=== PATIENT | male | born 1945 | race Caucasian/White ===

== ENCOUNTER 2016-10-26 14:25 | Emergency (ER) | payer MEDICARE ==
[~2016-10-26] VITALS: Ht 177.8 cm; Wt 91.0 kg
[~2016-10-26 14:25] MED LIST: ALFU10TA PO; HYDR-3240 PO; INDO50CA PO; MILK THISTLE PO; MULT-208 PO; No meds per pt.; OXYC-302 PO; RED600TA PO; SELE200T10 PO
[2016-10-26 14:35] VITALS: BP 147/93
== END 2016-10-26 15:56 | disposition home or self-care (01) ==
LOC: ED 15:50
DX: H66.93 Otitis media, unspecified, bilateral (principal); Z87.891 Personal history of nicotine dependence
CPT/HCPCS: 99283

== ENCOUNTER 2017-06-13 07:22 | Inpatient (IN) | payer MEDICARE ==
[~2017-06-13] VITALS: Ht 177.8 cm; Wt 97.6 kg
[2017-06-13] MEDS ORDERED: OXYC-302 PO (08:11)
[2017-06-13] MEDS ORDERED: TURM1TAB PO (08:11)
[2017-06-13] MEDS ORDERED: SODIUM CHLORIDE 0.9% 1,000 ML IV ONE (08:21)
[2017-06-13] MEDS ORDERED: SODIUM CHLORIDE FLUSH 10ML SYR IVF ONE (08:30)
[2017-06-13 09:22] LABS: BASOPHILS # (AUTO) 0.04 x10^3/uL (0-0.1); BASOPHILS % (AUTO) 1 % (0-1); EOSINOPHILS # (AUTO) 0.11 x10^3/uL (0-0.4); EOSINOPHILS % (AUTO) 2 % (1-7); LYMPHOCYTES # (AUTO) 1.82 x10^3/uL (1-3.4); LYMPHOCYTES % (AUTO) 25 % (22-44); MD NO; MEAN CORPUSCULAR HEMOGLOBIN 31.3 pg (27.5-34.5); MEAN CORPUSCULAR HGB CONC 34.6 g/dL (33.2-36.2); MEAN CORPUSCULAR VOLUME 90.6 fL (81-97); MEAN PLATELET VOLUME 7.8 fL (7.4-10.4); MONOCYTES % (AUTO) 8 % (2-9); NEUTROPHILS # (AUTO) 4.64 x10^3/uL (1.8-6.8); NEUTROPHILS % (AUTO) 64 % (42-75); PLATELET COUNT 237 x10^3/uL (130-400); RED BLOOD COUNT 5.41 x10^6/uL (4.38-5.82); RED CELL DISTRIBUTION WIDTH 13.6 % (9.4-14.8)
[2017-06-13 09:32] LABS: ALANINE AMINOTRANSFERASE 22 U/L (12-78); ALBUMIN 3.6 g/dL (3.4-5.0); ANION GAP 7 mmol/L (5-15); CALCIUM 9.1 mg/dL (8.5-10.1); CHLORIDE 109 mmol/L (98-107); CREATININE 1.07 mg/dL (0.7-1.3)
[2017-06-13 09:35] LABS: ALKALINE PHOSPHATASE 46 U/L (45-117); BILIRUBIN,TOTAL 0.5 mg/dL (0.2-1.0); TOTAL PROTEIN 8.2 g/dL (6.4-8.2); TROPONIN I < 0.015 ng/mL (0.000-0.045)
[2017-06-13] MEDS ORDERED: ASPIRIN 325 MG TABLET ONE (10:16)
[2017-06-13] MEDS ORDERED: ASPIRIN 325 MG TABLET PO ONE (10:30)
[2017-06-13] MEDS ORDERED: LABETALOL 5MG/ML, 20ML IVPush PRN (12:30)
[2017-06-13] MEDS ORDERED: ASPIRIN 325 MG TABLET EC PO ONE (12:30)
[2017-06-13] MEDS ORDERED: POLYETHYLENE GLYCOL 17 GM PACKET PO PRN (12:30)
[2017-06-13] MEDS ORDERED: ONDANSETRON 2MG/ML, 2ML IVPush PRN (12:30)
[2017-06-13] MEDS ORDERED: HYDROcodone/APAP 5/325 TABLET PO PRN (12:30)
[2017-06-13] MEDS ORDERED: ONDANSETRON ODT 4 MG PO PRN (12:30)
[2017-06-13] MEDS ORDERED: GUAIFENESIN/DM 200-20MG, 10ML UDC PO PRN (12:30)
[2017-06-13 13:01] LABS: INTERNATIONAL NORMALIZED RATIO 1.07 (0.93-1.1); PROTHROMBIN TIME 11.1 Seconds (9.6-11.5)
[2017-06-13 13:19] LABS: CHOL/HDL RATIO 6.3; LDL/HDL RATIO 3.7 (0.5-3.0)
[2017-06-13 13:24] LABS: HEMOGLOBIN A1C 5.3 % (4.2-6.3)
[2017-06-13 14:00] VITALS: BP 151/89
[2017-06-13] MEDS: ENOXAPARIN 40 MG/0.4 ML SQ SCH (15:07)
[2017-06-13] MEDS: OXYcodone/APAP 5/325MG TABLET PO PRN ×2 (15:07→19:18)
[2017-06-13] MEDS: SODIUM CHLORIDE 0.9% 1,000 ML IV SCH (15:08)
[2017-06-13] MEDS ORDERED: INSULIN SINGLE DOSE, ER SQ-INSULIN ONE (16:07)
[2017-06-13 19:26] VITALS: BP 147/78
[2017-06-14 01:10] VITALS: BP 131/83
[2017-06-14] MEDS: SODIUM CHLORIDE 0.9% 1,000 ML IV SCH ×3 (01:10→21:04)
[2017-06-14] MEDS: OXYcodone/APAP 5/325MG TABLET PO PRN ×5 (04:02→22:42)
[2017-06-14 05:53] LABS: ALANINE AMINOTRANSFERASE 18 U/L (12-78); ALBUMIN 2.7 g/dL (3.4-5.0); ANION GAP 7 mmol/L (5-15); CALCIUM 8.1 mg/dL (8.5-10.1); CHLORIDE 113 mmol/L (98-107); CREATININE 0.94 mg/dL (0.7-1.3)
[2017-06-14 05:55] LABS: ALKALINE PHOSPHATASE 38 U/L (45-117); BILIRUBIN,TOTAL 0.4 mg/dL (0.2-1.0); TOTAL PROTEIN 6.4 g/dL (6.4-8.2)
[2017-06-14] MEDS: ASPIRIN 81 MG TABLET EC PO SCH (05:55)
[2017-06-14 06:06] LABS: BASOPHILS # (AUTO) 0.06 x10^3/uL (0-0.1); BASOPHILS % (AUTO) 1 % (0-1); EOSINOPHILS # (AUTO) 0.14 x10^3/uL (0-0.4); EOSINOPHILS % (AUTO) 3 % (1-7); LYMPHOCYTES # (AUTO) 1.71 x10^3/uL (1-3.4); LYMPHOCYTES % (AUTO) 29 % (22-44); MD NO; MEAN CORPUSCULAR HGB CONC 34.1 g/dL (33.2-36.2); MEAN CORPUSCULAR VOLUME 90.8 fL (81-97); MEAN PLATELET VOLUME 8.3 fL (7.4-10.4); MONOCYTES # (AUTO) 0.62 x10^3/uL (0.2-0.8); MONOCYTES % (AUTO) 11 % (2-9); NEUTROPHILS # (AUTO) 3.34 x10^3/uL (1.8-6.8); NEUTROPHILS % (AUTO) 57 % (42-75); PLATELET COUNT 206 x10^3/uL (130-400); RED CELL DISTRIBUTION WIDTH 13.7 % (9.4-14.8)
[2017-06-14 08:30] VITALS: BP 147/77
[2017-06-14] MEDS: SENNA/DOCUSATE TABLET PO SCH ×2 (09:09→18:24)
[2017-06-14] MEDS: ENOXAPARIN 40 MG/0.4 ML SQ SCH (12:04)
[2017-06-14 15:14] VITALS: BP 132/76
[2017-06-14 18:51] VITALS: BP 131/74
[2017-06-14] MEDS: PRAVASTATIN 40 MG TABLET PO SCH (20:55)
[2017-06-14] MEDS ORDERED: PRAVASTATIN 20 MG TABLET PO SCH (21:00)
[2017-06-15 00:10] VITALS: BP 153/87
[2017-06-15] MEDS: OXYcodone/APAP 5/325MG TABLET PO PRN ×4 (04:51→18:22)
[2017-06-15] MEDS: ASPIRIN 81 MG TABLET EC PO SCH (04:54)
[2017-06-15 05:03] LABS: BASOPHILS # (AUTO) 0.07 x10^3/uL (0-0.1); BASOPHILS % (AUTO) 1 % (0-1); EOSINOPHILS # (AUTO) 0.18 x10^3/uL (0-0.4); EOSINOPHILS % (AUTO) 3 % (1-7); LYMPHOCYTES # (AUTO) 1.44 x10^3/uL (1-3.4); LYMPHOCYTES % (AUTO) 22 % (22-44); MD NO; MEAN CORPUSCULAR HGB CONC 34.1 g/dL (33.2-36.2); MEAN CORPUSCULAR VOLUME 90.7 fL (81-97); MONOCYTES % (AUTO) 9 % (2-9); NEUTROPHILS # (AUTO) 4.15 x10^3/uL (1.8-6.8); NEUTROPHILS % (AUTO) 65 % (42-75); PLATELET COUNT 204 x10^3/uL (130-400); RED BLOOD COUNT 4.65 x10^6/uL (4.38-5.82); RED CELL DISTRIBUTION WIDTH 13.6 % (9.4-14.8)
[2017-06-15 05:13] LABS: ALBUMIN 2.8 g/dL (3.4-5.0); ANION GAP 4 mmol/L (5-15); CALCIUM 7.9 mg/dL (8.5-10.1); CHLORIDE 115 mmol/L (98-107)
[2017-06-15 05:19] LABS: ALANINE AMINOTRANSFERASE 20 U/L (12-78); ALKALINE PHOSPHATASE 38 U/L (45-117); BILIRUBIN,TOTAL 0.5 mg/dL (0.2-1.0); CREATININE 0.93 mg/dL (0.7-1.3); TOTAL PROTEIN 6.3 g/dL (6.4-8.2)
[2017-06-15] MEDS: SODIUM CHLORIDE 0.9% 1,000 ML IV SCH ×2 (07:04→17:22)
[2017-06-15 08:45] VITALS: BP 145/78
[2017-06-15] MEDS: SENNA/DOCUSATE TABLET PO SCH (08:49)
[2017-06-15] MEDS: ENOXAPARIN 40 MG/0.4 ML SQ SCH (11:30)
[2017-06-15 13:48] VITALS: BP 131/78
[2017-06-15 19:19] VITALS: BP 137/75
[2017-06-15] MEDS: PRAVASTATIN 40 MG TABLET PO SCH (21:00)
[2017-06-16] MEDS: OXYcodone/APAP 5/325MG TABLET PO PRN ×2 (00:11→05:44)
[2017-06-16 02:00] VITALS: BP 141/88
[2017-06-16] MEDS: SODIUM CHLORIDE 0.9% 1,000 ML IV SCH (03:53)
[2017-06-16 05:10] LABS: BASOPHILS # (AUTO) 0.05 x10^3/uL (0-0.1); BASOPHILS % (AUTO) 1 % (0-1); EOSINOPHILS # (AUTO) 0.15 x10^3/uL (0-0.4); EOSINOPHILS % (AUTO) 2 % (1-7); LYMPHOCYTES # (AUTO) 1.69 x10^3/uL (1-3.4); LYMPHOCYTES % (AUTO) 25 % (22-44); MD NO; MEAN CORPUSCULAR HEMOGLOBIN 30.7 pg (27.5-34.5); MEAN CORPUSCULAR HGB CONC 34.4 g/dL (33.2-36.2); MEAN CORPUSCULAR VOLUME 89.3 fL (81-97); MEAN PLATELET VOLUME 7.9 fL (7.4-10.4); MONOCYTES # (AUTO) 0.65 x10^3/uL (0.2-0.8); MONOCYTES % (AUTO) 10 % (2-9); NEUTROPHILS # (AUTO) 4.17 x10^3/uL (1.8-6.8); NEUTROPHILS % (AUTO) 62 % (42-75); PLATELET COUNT 207 x10^3/uL (130-400); RED BLOOD COUNT 4.51 x10^6/uL (4.38-5.82); RED CELL DISTRIBUTION WIDTH 13.4 % (9.4-14.8)
[2017-06-16 05:11] LABS: ALBUMIN 2.7 g/dL (3.4-5.0); ANION GAP 8 mmol/L (5-15); CALCIUM 7.9 mg/dL (8.5-10.1); CHLORIDE 113 mmol/L (98-107); CREATININE 0.84 mg/dL (0.7-1.3)
[2017-06-16] MEDS: ASPIRIN 81 MG TABLET EC PO SCH (05:44)
[2017-06-16] MEDS ORDERED: ASPI-621 PO (07:30)
[2017-06-16] MEDS ORDERED: PRAV40TA PO (07:30)
[2017-06-16 07:45] VITALS: BP 133/76
[2017-06-16] MEDS: SENNA/DOCUSATE TABLET PO SCH (07:59)
== END 2017-06-16 10:05 | disposition home or self-care (01) | DRG 65 ==
LOC: ED 10:06 → EDIP 10:20 → 4WST 12:13 → DCLOUNGE 06-16 09:51
PROVIDERS: ADMIT Hospitalist; ATTEND Hospitalist
DX: I63.9 Cerebral infarction, unspecified (principal); G81.94 Hemiplegia, unspecified affecting left nondominant side; E78.5 Hyperlipidemia, unspecified; G89.29 Other chronic pain; I10 Essential (primary) hypertension; M19.90 Unspecified osteoarthritis, unspecified site; M10.9 Gout, unspecified; F17.210 Nicotine dependence, cigarettes, uncomplicated; M54.2 Cervicalgia; Z66 Do not resuscitate; Z85.46 Personal history of malignant neoplasm of prostate; Z90.79 Acquired absence of other genital organ(s); Z88.8 Allergy status to other drugs, medicaments and biological substances; Z90.49 Acquired absence of other specified parts of digestive tract; R47.1 Dysarthria and anarthria; R29.810 Facial weakness
CPT/HCPCS: 36415; 70450; 70551; 80048; 80053; 80061; 82040; 82550; 83036; 83735; 84484; 85025; 85610; 93005; 93306; 93880; 96360; J1650; J7030

== ENCOUNTER 2017-09-29 16:12 | Inpatient (IN) | payer MEDICARE ==
[~2017-09-29] VITALS: Ht 177.8 cm; Wt 101.4 kg
[~2017-09-29 16:12] MED LIST changes: +ASPI-621 PO; +PRAV40TA PO; +TURM1TAB PO
[2017-09-29] MEDS ORDERED: LABETALOL 5MG/ML, 20ML IVPush ONE (17:00)
[2017-09-29] MEDS ORDERED: LABETALOL 5MG/ML, 20ML ONE (17:04)
[2017-09-29 17:21] LABS: BASOPHILS # (AUTO) 0.05 x10^3/uL (0-0.1); BASOPHILS % (AUTO) 1 % (0-1); EOSINOPHILS # (AUTO) 0.18 x10^3/uL (0-0.4); EOSINOPHILS % (AUTO) 2 % (1-7); LYMPHOCYTES # (AUTO) 1.84 x10^3/uL (1-3.4); LYMPHOCYTES % (AUTO) 21 % (22-44); MD NO; MEAN CORPUSCULAR HEMOGLOBIN 30.7 pg (27.5-34.5); MEAN CORPUSCULAR HGB CONC 33.7 g/dL (33.2-36.2); MEAN PLATELET VOLUME 7.7 fL (7.4-10.4); MONOCYTES # (AUTO) 0.97 x10^3/uL (0.2-0.8); MONOCYTES % (AUTO) 11 % (2-9); NEUTROPHILS # (AUTO) 5.74 x10^3/uL (1.8-6.8); NEUTROPHILS % (AUTO) 65 % (42-75); PLATELET COUNT 294 x10^3/uL (130-400); RED BLOOD COUNT 4.94 x10^6/uL (4.38-5.82); RED CELL DISTRIBUTION WIDTH 13.6 % (9.4-14.8)
[2017-09-29 17:32] LABS: ALANINE AMINOTRANSFERASE 22 U/L (12-78); ALBUMIN 3.2 g/dL (3.4-5.0); ANION GAP 9 mmol/L (5-15); CALCIUM 8.1 mg/dL (8.5-10.1); CHLORIDE 111 mmol/L (98-107); CREATININE 1.01 mg/dL (0.7-1.3)
[2017-09-29 17:37] LABS: ALKALINE PHOSPHATASE 49 U/L (45-117); BILIRUBIN,TOTAL 0.3 mg/dL (0.2-1.0); TOTAL PROTEIN 7.5 g/dL (6.4-8.2); TROPONIN I < 0.015 ng/mL (0.000-0.045)
[2017-09-29] MEDS ORDERED: IBUPROFEN 800 MG TABLET ONE (18:24)
[2017-09-29] MEDS ORDERED: hydrALAzine 20 MG/ML, 1ML IV ONE (18:30)
[2017-09-29] MEDS ORDERED: hydrALAzine 20 MG/ML, 1ML ONE (18:39)
[2017-09-29] MEDS ORDERED: MORPHINE SULFATE 4 MG/ML, 1ML ONE (18:39)
[2017-09-29] MEDS ORDERED: ONDANSETRON ODT 4 MG ONE (18:41)
[2017-09-29] MEDS ORDERED: SODIUM CHLORIDE 0.9% 1,000 ML IV SCH (18:50)
[2017-09-29] MEDS ORDERED: ONDANSETRON 2MG/ML, 2ML IVPush PRN (19:00)
[2017-09-29] MEDS ORDERED: hydrALAzine 20 MG/ML, 1ML IVPush PRN (19:00)
[2017-09-29] MEDS ORDERED: NITROGLYCERIN 0.4 MG BOTTLE (25 TABS) SL PRN (19:00)
[2017-09-29] MEDS ORDERED: ONDANSETRON ODT 4 MG PO ONE (19:00)
[2017-09-29] MEDS ORDERED: ACETAMINOPHEN 325 MG TABLET PO PRN (19:00)
[2017-09-29] MEDS ORDERED: morphine SULFATE 10 MG/ML, 1ML IVPush ONE (19:00)
[2017-09-29] MEDS ORDERED: DOCUSATE 100 MG CAPSULE PO PRN (19:00)
[2017-09-29] MEDS ORDERED: METH500T7 PO (19:19)
[2017-09-29] MEDS ORDERED: CHOL200024 PO (19:19)
[2017-09-29] MEDS ORDERED: UBID100C24 PEG (19:19)
[2017-09-29] MEDS ORDERED: ISOS30TA8 PO (19:19)
[2017-09-29] MEDS: OXYcodone/APAP 5/325MG TABLET PO SCH (22:15)
[2017-09-29] MEDS: PRAVASTATIN 40 MG TABLET PO SCH (22:16)
[2017-09-29 22:37] VITALS: BP 160/92
[2017-09-30 01:29] VITALS: BP 142/88
[2017-09-30] MEDS: OXYcodone/APAP 5/325MG TABLET PO SCH ×5 (02:03→20:07)
[2017-09-30] MEDS: ASPIRIN 81 MG TABLET EC PO SCH (06:09)
[2017-09-30 07:24] VITALS: BP 149/82
[2017-09-30] MEDS ORDERED: OXYC-302 PO (08:43)
[2017-09-30] MEDS: ISOSORBIDE MONONITRATE ER 30 MG TABLET PO SCH (09:17)
[2017-09-30] MEDS ORDERED: OXYC-307 PO (09:27)
[2017-09-30] MEDS: LISINOPRIL 10 MG TABLET PO SCH (11:18)
[2017-09-30 13:27] VITALS: BP 109/70
[2017-09-30] MEDS ORDERED: INDOMETHACIN 50 MG CAPSULE PO ONE ×2 (17:00)
[2017-09-30 20:01] VITALS: BP 144/75
[2017-09-30] MEDS: PRAVASTATIN 40 MG TABLET PO SCH (20:07)
[2017-10-01] MEDS: OXYcodone/APAP 5/325MG TABLET PO SCH ×4 (00:31→11:39)
[2017-10-01 01:00] VITALS: BP 130/87
[2017-10-01] MEDS: ASPIRIN 81 MG TABLET EC PO SCH (04:57)
[2017-10-01 05:22] LABS: BASOPHILS # (AUTO) 0.02 x10^3/uL (0-0.1); BASOPHILS % (AUTO) 0 % (0-1); EOSINOPHILS # (AUTO) 0.01 x10^3/uL (0-0.4); EOSINOPHILS % (AUTO) 0 % (1-7); LYMPHOCYTES # (AUTO) 1.56 x10^3/uL (1-3.4); LYMPHOCYTES % (AUTO) 17 % (22-44); MD NO; MEAN CORPUSCULAR HEMOGLOBIN 31.2 pg (27.5-34.5); MEAN CORPUSCULAR HGB CONC 34.8 g/dL (33.2-36.2); MEAN CORPUSCULAR VOLUME 89.8 fL (81-97); MEAN PLATELET VOLUME 7.7 fL (7.4-10.4); MONOCYTES # (AUTO) 0.88 x10^3/uL (0.2-0.8); MONOCYTES % (AUTO) 10 % (2-9); NEUTROPHILS # (AUTO) 6.54 x10^3/uL (1.8-6.8); NEUTROPHILS % (AUTO) 73 % (42-75); PLATELET COUNT 253 x10^3/uL (130-400); RED BLOOD COUNT 4.67 x10^6/uL (4.38-5.82); RED CELL DISTRIBUTION WIDTH 13.4 % (9.4-14.8)
[2017-10-01 05:34] LABS: ANION GAP 9 mmol/L (5-15); CALCIUM 8.7 mg/dL (8.5-10.1); CHLORIDE 112 mmol/L (98-107)
[2017-10-01 05:52] LABS: CREATININE 0.95 mg/dL (0.7-1.3)
[2017-10-01] MEDS: LISINOPRIL 10 MG TABLET PO SCH (08:04)
[2017-10-01] MEDS: ISOSORBIDE MONONITRATE ER 30 MG TABLET PO SCH (08:04)
[2017-10-01 08:40] VITALS: BP 146/80
[2017-10-01] MEDS ORDERED: TURMERIC CURCUMIN PO SCH (09:00)
[2017-10-01] MEDS ORDERED: LISI-167 PO (09:49)
[2017-10-01] MEDS ORDERED: MAGNESIUM SULFATE PMX 2GM/50ML 50 ML IV ONE (10:00)
[2017-10-01 12:07] VITALS: BP 115/65
== END 2017-10-01 13:05 | disposition home or self-care (01) | DRG 305 ==
LOC: SUATTDRO 18:36 → ED 18:49 → EDIP 18:50 → ED 19:09 → 4WST 19:53 → DCLOUNGE 10-01 12:51
PROVIDERS: ADMIT Hospitalist; ATTEND Hospitalist
DX: I16.1 Hypertensive emergency (principal); I65.29 Occlusion and stenosis of unspecified carotid artery; E78.5 Hyperlipidemia, unspecified; I10 Essential (primary) hypertension; I25.10 Atherosclerotic heart disease of native coronary artery without angina pectoris; M19.90 Unspecified osteoarthritis, unspecified site; M10.9 Gout, unspecified; G89.29 Other chronic pain; M54.2 Cervicalgia; Z88.8 Allergy status to other drugs, medicaments and biological substances; Z85.46 Personal history of malignant neoplasm of prostate; Z87.891 Personal history of nicotine dependence; Z90.49 Acquired absence of other specified parts of digestive tract; Z90.79 Acquired absence of other genital organ(s); Z86.73 Personal history of transient ischemic attack (TIA), and cerebral infarction without residual deficits
CPT/HCPCS: 36415; 70450; 71045; 80048; 80053; 83735; 84484; 85025; 93005; 96374; 96375; 99285; Q0162; J0360; J2270; J3475; J7030

== ENCOUNTER → 2017-11-17 | Outpatient (CLI) | payer MEDICARE ==
[~2017-11-17] MED LIST changes: +CHOL200024 PO; +ISOS30TA8 PO; +LISI-167 PO; +METH500T7 PO; +OXYC-307 PO; +UBID100C24 PEG
== END | disposition home or self-care (01) ==
LOC: CARD 12:39
PROVIDERS: ATTEND Physician Assistant Medical
DX: R06.02 Shortness of breath (principal)
CPT/HCPCS: 94010; 94726; 94729

== ENCOUNTER → 2017-12-02 | Outpatient (CLI) | payer MEDICARE ==
[~2017-12-02] MED LIST changes: +REGADENOSON 0.4 MG/5 ML SYRINGE ONE
== END | disposition home or self-care (01) ==
LOC: CFH 09:23
PROVIDERS: ATTEND Nurse Practitioner Family
DX: I08.2 Rheumatic disorders of both aortic and tricuspid valves (principal); I10 Essential (primary) hypertension; R06.02 Shortness of breath; Z85.46 Personal history of malignant neoplasm of prostate; Z86.73 Personal history of transient ischemic attack (TIA), and cerebral infarction without residual deficits
CPT/HCPCS: 78452; 93017; 93306; A9502; J2785

== ENCOUNTER 2019-07-09 15:38 | Outpatient (CLI) | payer MEDICARE ==
[~2019-07-09 15:38] MED LIST changes: -ASPI-621 PO; +ASPI81TA45 PO; -INDO50CA PO; +INDO50CA15 PO; -REGADENOSON 0.4 MG/5 ML SYRINGE ONE
[2019-07-09 16:11] LABS: ANION GAP 7 mmol/L (5-15); CALCIUM 8.9 mg/dL (8.5-10.1); CHLORIDE 111 mmol/L (98-107); CREATININE 1.03 mg/dL (0.7-1.3)
== END 2019-07-09 23:59 | disposition home or self-care (01) ==
LOC: LAB 15:38
PROVIDERS: ATTEND Anesthesiology
DX: Z01.812 Encounter for preprocedural laboratory examination (principal); I11.9 Hypertensive heart disease without heart failure; E10.9 Type 1 diabetes mellitus without complications; E66.9 Obesity, unspecified
CPT/HCPCS: 36415; 80048; 85014